=== PATIENT | female | born 1940 | race Caucasian/White ===

== ENCOUNTER 2017-04-15 01:24 | Inpatient (IN) | payer MEDICARE, OTHER ==
[~2017-04-15] VITALS: Ht 165.1 cm; Wt 56.5 kg
[2017-04-15] MEDS ORDERED: HYDROCHLOROTH12.5 M1 PO (01:37)
[2017-04-15] MEDS ORDERED: PRINIVIL5 MG PO (01:39)
[2017-04-15] MEDS ORDERED: K-TAB ER20 MEQ PO (01:51)
--- NOTE | 2017-04-15 07:36 | NUR ---
PATIENT LYING AWAKE IN BED. RECEIVED TO ROOM 113 AT 0700. REPORT RECEIVED FROM LAURITA KEE. NO BM SINCE ON MEDICAL FLOOR, BUT REPORTED 8 BMs IN ED. CONTACT PRECAUTIONS IN PLACE UNTIL C-DIFF RESULTS COME BACK. SALINE LOCKED. CLEAR LIQUID TRAY ORDERED FOR PATIENT.
--- NOTE | 2017-04-15 07:46 | NUR ---
PATIENT JUST ARRIVED FROM ED. AWAKE, SITTING IN BED. FAMILY IN ROOM. CONTACT PRECAUTIONS UNTIL C-DIFF. RULED OUT. WHITEBOARD UPDATED. PATIENT DOES NOT NEED ANYTHING AT THIS TIME.
--- NOTE | 2017-04-15 08:58 | NUR ---
TOOK PATIENT TO BATHROOM. PATIENT STATED THAT HER BOTTOM WAS SORE FROM ALL THE LIQUID BM'S SO I HAD HER USE THE BARRIER CREAM WIPES AND CHANGED HER DEPEND. PATIENT DID NOT WANT TO SIT UP IN CHAIR FOR BREAKFAST, SO SHE WENT BACK TO BED.
--- NOTE | 2017-04-15 11:47 | NUR ---
PATIENT DOING WELL. IN BED
--- NOTE | 2017-04-15 12:43 | NUR ---
NURSE IN ROOM. LUNCH BROUGHT
--- NOTE | 2017-04-15 13:55 | NUR ---
PT RESTING QUIETLY WITH LIGHTS DIMMED BETWEEN CARES AND TRIPS TO THE BATHROOM. SBA. STOOL SAMPLE SENT TO LAB THIS MORNING.
[2017-04-15] MEDS ORDERED: HYDROCHLOROTHIA25 MG PO (16:33)
[2017-04-15] MEDS ORDERED: QUINAPRIL HCL40 MG PO (16:34)
[2017-04-15] MEDS ORDERED: POTASSIUM CHLO10 ME2 PO (16:36)
[2017-04-15] MEDS ORDERED: MELOXICAM15 MG PO (16:37)
--- NOTE | 2017-04-15 17:42 | NUR ---
NO NAUSEA TODAY. BM X2 TODAY. LR @ 100. FLAGYL IV. 60MEQ PO KCL TODAY. C-DIFF NEGATIVE. 1PA/SBA TO BR. CLEAR LIQUID DIET. RESTING IN BED MOST OF DAY. LIKES LOTS OF BLANKETS.
--- NOTE | 2017-04-15 19:37 | NUR ---
RECIEVED REPORT FROM DAY SHIFT NURSE. PT RESTING IN BED. IVF INFUSING W/O DIFFICULTY. PT DENIES NEEDS AT THIS TIME. CALL SOTO IN REACH.
--- NOTE | 2017-04-15 22:00 | NUR ---
NURSE NOTIFIED RE TAINAP.
--- NOTE | 2017-04-15 23:13 | NUR ---
MOTORCYCLE SUBASSEMBLER REPORTS PT HAS TEMP OF 100.0. ADMINISTERED TYLENOL, TURNED DOWN TEMPERATURE IN ROOM. PT STATES SHE DOES NOT FEEL "FEVERISH." DENIES COLD CHILLS. PT STATES I FINALLY FEEL LIKE MY TEMPERATURE HAS NORMALIZED, I HAVE BEEN FEELING COLD BUT NOW I FEEL FINE. PT C/O INTERMITTENT PAIN 09/10 IN LOWER ABD. OFFERED HER A WARM PACK, PT REFUSED. PT STATES SHE HAD A BM EARLIER THAT WAS FORMED. PT DENIES NEEDS. CALL SOTO IN REACH.
--- NOTE | 2017-04-16 00:20 | NUR ---
ASSISTED PATIENT BACK TO BED FROM BATHROOM. CALL LIGHT WITHIN REACH.
--- NOTE | 2017-04-16 00:29 | NUR ---
ASSISTED PT TO BATHROOM.
--- NOTE | 2017-04-16 02:40 | NUR ---
PT SLEEPING. IVF INFUSING W/O DIFFICULTY. CALL SOTO IN REACH.
--- NOTE | 2017-04-16 04:50 | NUR ---
PT SLEEPING. IVF INFUSING W/O DIFFICULTY. CALL SOTO IN REACH.
--- NOTE | 2017-04-16 05:58 | NUR ---
PT RESTING IN BED. TOLD HER SHE MAY ADVANCE HER DIET THIS MORNING TO SOFT FOOD. BS HYPERACTIVE. PT STATES PAIN IS INTERMITTENT AND AT A MINIMUM. LAB IN TO DRAW BLOOD. PT DENIES NEEDS. CALL SOTO IN REACH.
--- NOTE | 2017-04-16 06:42 | NUR ---
PT HAD A GOOD NIGHT. VOIDING WELL. STILL ON 2L O2 WHILE AWAKE. CPAP AT NIGHT. LUNGS CLEAR->DIM. 1 ASSIST WITH FWW.
--- NOTE | 2017-04-16 07:06 | NUR ---
ASSISTED TO THE BATHROOM THEN BACK TO BED. ORAL CARE DONE BY PATIENT. WARM WASH CLOTH TO WASH FACE AND HANDS.
--- NOTE | 2017-04-16 07:20 | NUR ---
BEDSIDE HANDOFF REPORT RECEIVED FROM RN ACLS RN. PT RESTING IN BED. PT ASSISTED WITH ORDERING SOFT LOW RESIDUE BREAKFAST. PT DENIES OTHER NEEDS AT THIS TIME.
--- NOTE | 2017-04-16 08:42 | NUR ---
PT IS SITTING UP IN BED EATING HER BREAKFAST, CALL LIGHT IN REACH. PT DID NOT NEED ANYTHING AT THE MOMENT
--- NOTE | 2017-04-16 09:00 | NUR ---
PT RESTING IN BED. PT STATES PAIN TOLERABLE, PAIN WITH PALPATION OR DEEP BREATHING. PT ON ROOM AIR, LUNG SOUNDS CLEAR. BOWEL TONES ACTIVE. PT DENIES NAUSEA, ADVANCED TO LOW FIBER DIET, TOLERATING WELL. IV FLUIDS INFUSING AT 100 ML/HR. PT WITH TRACE EDEMA TO BLE. DISCUSSED PLAN OF CARE WITH PT. PT DENIES NEEDS AT THIS TIME.
--- NOTE | 2017-04-16 09:30 | NUR ---
FAMILY AT BEDSIDE, REQUESTING PT UPDATE. DISCUSSED PLAN OF CARE, PENDING LABS, AND IV ABX.
--- NOTE | 2017-04-16 10:10 | NUR ---
PT IS SITTING UP IN BED WITH CALL LIGHT IN REACH AND FAMILY IN ROOM. PT HAS AGREED TO SHOWER BUT WOULF LIKE TO WAIT UNTIL AFTER 1400, WILL CHAECK AGAIN LATER
--- NOTE | 2017-04-16 11:22 | NUR ---
PATIENT UP TO THE BATHROOM TO VOID, PATIENT VOIDED 100MLS OF YELLOW URINE. PATIENT IS STEADY ON HIS FEET.
--- NOTE | 2017-04-16 12:45 | NUR ---
MD TO BEDSIDE TO EVALUATE PT. PLAN TO CONTINUE WITH IV ABX, REDRAW LABS IN AM
--- NOTE | 2017-04-16 13:59 | NUR ---
PT IS SITTING UP IN BED WITH CALL LIGHT IN REACH. PT ORDERED LUNCH LATE, SO SHE HAS NOT EATEN YET.
--- NOTE | 2017-04-16 16:30 | NUR ---
IV ABX INFUSION COMPLETED. PT SALINE LOCKED. PT REQUESTING TO SHOWER. NURSE AIDE TO HELP PT SHOWER. PT DENIES OTHER NEEDS AT THIS TIME.
--- NOTE | 2017-04-16 17:58 | NUR ---
PT FEELING BETTER TODAY. LOOSE STOOLS HAVE DECREASED. PT ON ROOM AIR, LUNG SOUNDS CLEAR. PT TOLERATING LOW FIBER DIET, DENIES NAUSEA. PT UP SBA TO BATHROOM. PT SL, FIELD START, RECIEVING IV FLAGYL AND CIPRO. PT VOIDING QS. PT COULD DISCHARGE TOMORROW PENDING MORNING LABS.
--- NOTE | 2017-04-16 18:17 | NUR ---
PT IS RESTING IN BED WITH CALL LIGHT IN REACH. PT ASKED FOR A WARM BLANKET
--- NOTE | 2017-04-16 19:05 | NUR ---
BEDSIDE REPORT RECEIVED FROM OFFGOING RN. PT LYING IN BED. DENIES NEEDS AT THIS TIME. CALL LIGHT WITHIN REACH.
--- NOTE | 2017-04-16 20:48 | EKG ---
[facility] [address] [place] [address] Signed Sinus rhythm with fusion complexes and premature atrial complexes Otherwise normal ECG No previous ECGs available Confirmed by SONAL AMIN MD ([id number]) on 04/16/2017 8:48:18 PM Electronically Signed By: SONAL AMIN MD 04/16/178 PATIENT NAME: OLGA LUCEROCheng Anand Electrocardiogram DATE OF : 38 PHYSICIAN: SONAL AMIN MD REPORT #: [id number] REPORT IS CONFIDENTIAL AND NOT TO BE RELEASED WITHOUT AUTHORIZATION
--- NOTE | 2017-04-16 22:33 | NUR ---
PT ASSESSMENT COMPLETE. PT DENIES PAIN, NAUSEA, OR SOB. DENIES NEEDS AT THIS TIME. CALL LIGHT WITHIN REACH.
--- NOTE | 2017-04-16 22:50 | NUR ---
PT UP TO USE THE BATHROOM WITH STANDBY ASSIST. PT TOLERATED WELL. DENIES OTHER NEEDS AT THIS TIME. CALL LIGHT WITHIN REACH.
--- NOTE | 2017-04-17 04:11 | NUR ---
PT RESTING WITH EYES CLOSED. WAKES EASILY. PT ASSESSMENT COMPLETE. UNCHANGED FROM PREVIOUS ASSESSMENT. PT DENIES PAIN, NAUSEA, OR SOB. DENIES NEEDS AT THIS TIME. CALL LIGHT WITHIN REACH.
--- NOTE | 2017-04-17 05:18 | NUR ---
PT RESTING WELL THIS SHIFT. NO REPORTS OF PAIN, NAUSEA, OR SOB. NO LOOSE STOOL THIS SHIFT. ABD TENDER. SBA TO BATHROOM. IV SL EXCEPT FOR IV ABX. UO QS.
--- NOTE | 2017-04-17 06:55 | NUR ---
BEDSIDE HANDOFF REPORT RECEIVED FROM REHABILITATION COORDINATOR RN. PT RESTING IN BED. PT DENIES NEEDS AT THIS TIME.
--- NOTE | 2017-04-17 09:40 | NUR ---
PATIENT IS IN BED, I DID MORNING VITAL SIGNS, AND SHE SAYS SHE IS COMFORTABLE IN BED FOR THE MOMENT!
--- NOTE | 2017-04-17 10:15 | NUR ---
IV LEAKING. DRESSING REMOVED, FLUSHED, LEAKING. IV DISCONTINUED. ATTEMTPED TO INSERT NEW IV. PT REQUESTING TO WAIT TO FIND OUT IF SHE WILL BE DISCHAGRED BEFORE ATTEMPTING ANOTHER IV. PT RESTING IN BED .FAMILY AT BEDSIDE.
[2017-04-17] MEDS ORDERED: CIPROFLOXACIN500 MG PO (11:55)
[2017-04-17] MEDS ORDERED: METRONIDAZOLE500 MG PO (11:56)
--- NOTE | 2017-04-17 13:03 | NUR ---
DISCHARGE INSTRUCTIONS COMPLETED WITH PT. REVIEW MEDICATIONS AND RESTRICTED DIET. QUESTIONS ANSWERED. PAPER PRESCRIPTION GIVEN TO PT. PT REFUSED TO HAVE FLU VACCINE, STATES SHE HAS ALREADY RECEIVED THE VACCINE FOR THIS YEAR. PT GETTIGN DRESSED, BELONGINGS COLLECTED. PT DENIES OTHER NEEDS AT THIS TIME.
--- NOTE | 2017-04-18 08:49 | NUR ---
MET WITH PT'S SON AND DAUGHTER IN [place]. CONCERNED ABOUT PT, FEEL BETTER ALREADY. I WILL CONTINUE TO FOLLOW
[2017-04-24] MEDS ORDERED: MELOXICAM15 MG PO (10:48)
[2017-04-24] MEDS ORDERED: QUINAPRIL HCL40 MG PO (10:48)
[2017-04-24] MEDS ORDERED: POTASSIUM CHLO10 ME2 PO (10:48)
== END 2017-04-17 13:35 | disposition home or self-care (01) | DRG 373 ==
LOC: ED 01:24 → MS 01:26
PROVIDERS: ADMIT Internal Medicine
DX: A04.9 Bacterial intestinal infection, unspecified (principal); I95.1 Orthostatic hypotension; E86.0 Dehydration; E87.6 Hypokalemia; E83.42 Hypomagnesemia; I10 Essential (primary) hypertension
CPT/HCPCS: 36415; 74177; 80048; 80053; 83735; 84484; 85025; 87045; 87046; 87177; 87205; 87209; 87493; 93005; 93010; J0696; J0744; J1650; J3475; J7030; J7120; Q9967